=== PATIENT | female | born 1975 | race African-American/Black ===

== ENCOUNTER 2021-12-30 01:33 | Emergency (ER) | payer OTHER ==
[~2021-12-30] VITALS: Ht 165.1 cm; Wt 59.0 kg
[2021-12-30] MEDS ORDERED: predniSONE 20 MG TABLET ONE (01:57)
[2021-12-30] MEDS ORDERED: ALBUTEROL SULFATE 2.5 MG/3 ML NEBU ONE (01:58)
[2021-12-30] MEDS ORDERED: IPRATROPIUM BROMIDE 0.5 MG/2.5 ML NEBU ONE (01:59)
[2021-12-30] MEDS ORDERED: ALBUTEROL SULFATE 2.5 MG/3 ML NEBU NEB ONE (02:00)
[2021-12-30] MEDS ORDERED: IPRATROPIUM BROMIDE 0.5 MG/2.5 ML NEBU NEB ONE (02:00)
[2021-12-30] MEDS ORDERED: predniSONE 10 MG TABLET PO ONE (02:00)
--- NOTE | 2021-12-30 02:30 | NUR ---
Patient is a/ox4, NAD noted
[2021-12-30] MEDS ORDERED: ALBU18HF2 INH (03:53)
[2021-12-30] MEDS ORDERED: AZIT250T PO (03:53)
--- NOTE | 2021-12-30 04:26 | NUR ---
called [facility] ambulance for tranport back to [place]. ETA 15 mins
--- NOTE | 2021-12-30 04:49 | NUR ---
Gave SBAR report to [facility] who will take patient back to [place] in [facility].
[2021-12-30 05:09] VITALS: BP 110/71
--- NOTE | 2021-12-30 05:09 | NUR ---
Patient discharged to home in stable condition via [facility] ambulance. Written and verbal after care instructions given. Patient verbalizes understanding of instructions. Stressed follow up or return to ER for worsening s/s.
== END 2021-12-30 05:10 | disposition home or self-care (01) ==
LOC: ER 01:36
DX: J18.9 Pneumonia, unspecified organism (principal); Z20.822 Contact with and (suspected) exposure to COVID-19; R94.31 Abnormal electrocardiogram [ECG] [EKG]; J45.909 Unspecified asthma, uncomplicated; G82.20 Paraplegia, unspecified; F17.210 Nicotine dependence, cigarettes, uncomplicated
CPT/HCPCS: 99284; 71045; 87426; 93005; 94640; J7512; A4663; J3590